=== PATIENT | female | born 1990 | race African-American/Black ===

== ENCOUNTER 2024-04-25 02:42 | Emergency (ER) | payer BC, MEDICAID ==
[2024-04-25] MEDS: TETANUS, DIPHTHERIA, PERTUSSIS VAC/PF 0.5ML (>10YR OLD) IM ONE (03:49)
[2024-04-25] MEDS ORDERED: BO1 TP (04:15)
[2024-04-25] MEDS ORDERED: IBUP-2029 MT (04:15)
[2024-04-25] MEDS: LIDOCAINE HCL/PF 1% 10 MG/ML 5ML VIAL INFIL ONE (04:23)
[2024-04-25] MEDS: BACITRACIN ZINC OINT UDPKT TOP ONE (04:23)
[2024-04-25 04:24] VITALS: BP 138/88; PULSE 90; RESP 20; TEMP 36.83628; O2SAT 99
== END 2024-04-25 04:26 | disposition home or self-care (01) ==
LOC: ER 03:02
DX: S61.213A Laceration without foreign body of left middle finger without damage to nail, initial encounter (principal); W26.0XXA Contact with knife, initial encounter; X58.XXXA Exposure to other specified factors, initial encounter; Y93.89 Activity, other specified; Y92.89 Other specified places as the place of occurrence of the external cause; Y99.9 Unspecified external cause status
CPT/HCPCS: 90715; 12001; 90471; 99283; J3490; Z7610 ×2